=== PATIENT | male | born 1990 | race Caucasian/White ===

== ENCOUNTER → 2019-10-27 | Outpatient (CLI) | payer OTHER ==
--- NOTE | 2019-10-27 16:35 | XR ---
EXAMINATION TYPE: XR chest 2V DATE OF EXAM: 10/27/2019 COMPARISON: 06/11/2011 INDICATION: Hemoptysis TECHNIQUE: Frontal and lateral views of the chest are obtained. FINDINGS: The heart size is normal. The pulmonary vasculature is normal. The lungs are clear. Tracheobronchial tree is visualized appears normal IMPRESSION: 1. No acute pulmonary process.
== END | disposition home or self-care (01) ==
LOC: RADXRMAIN 14:29
PROVIDERS: ATTEND Internal Medicine
DX: R04.2 Hemoptysis (principal)
CPT/HCPCS: 71046

== ENCOUNTER → 2019-10-29 | Outpatient (CLI) | payer BC ==
--- NOTE | 2019-10-29 09:52 | US ---
EXAMINATION TYPE: US liver DATE OF EXAM: 10/29/2019 COMPARISON: NONE CLINICAL HISTORY: R94.5 Abn Liver Function test. EXAM MEASUREMENTS: Liver Length: 16.1 cm Gallbladder Wall: 0.1 cm CBD: 0.4 cm Right Kidney: 11.8 x 4.9 x 4.9 cm Pancreas: Obscured by bowel gas Liver: Coarse, heterogeneous echotexture Gallbladder: wnl Evidence for sonographic Krishna's sign: No CBD: wnl as visualized Right Kidney: No hydronephrosis or masses seen IMPRESSION: 1. Coarse echotexture may reflect fatty liver.
== END | disposition home or self-care (01) ==
LOC: RADUSWWP 09:00
PROVIDERS: ATTEND Internal Medicine
DX: R94.5 Abnormal results of liver function studies (principal)
CPT/HCPCS: 76705